=== PATIENT | female | born 1960 | race Hispanic/Latino ===

== ENCOUNTER 2017-10-24 17:26 | Emergency (ER) | payer MEDICARE | END 2017-10-24 17:36 | disposition left against medical advice (07) | LOC: ED 17:26 | DX: R03.0 Elevated blood-pressure reading, without diagnosis of hypertension (principal); Z53.21 Procedure and treatment not carried out due to patient leaving prior to being seen by health care provider ==

== ENCOUNTER 2019-03-12 09:07 | Outpatient (CLI) | payer MEDICARE ==
--- NOTE | 2019-03-12 11:25 | Fluoroscopy Report ---
FLUOROSCOPY BARIUM SWALLOW HISTORY: Dysphagia to solids and liquids COMPARISON: None. FINDINGS: 0.7 minutes of fluoroscopy time was utilized. 33 fluoroscopic images were captured. A moderate size web is identified projecting from the anterior cervical esophagus at the level of C5. This appears to significantly narrow the cervical esophagus in this region. Stenosis is estimated at 75%. The remainder of the esophagus is normal caliber and mucosal pattern. One episode of laryngeal penetration was noted with thin barium. No evidence for aspiration. The patient refused to ingest a barium tablet. 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 This appears to significan tly narrow the esophagus as described. Consider direct visualization. Signer Name: Jonathon Starkey Jr, MD Signed: 03/12/2019 11:20 AM Workstation Name: [id number]
== END 2019-03-12 09:08 | disposition home or self-care (01) ==
LOC: FLUORO 09:07
PROVIDERS: ATTEND Internal Medicine
DX: K22.2 Esophageal obstruction (principal)
CPT/HCPCS: 74220

== ENCOUNTER 2020-07-23 07:27 | Emergency (ER) | payer MEDICARE ==
--- NOTE | 2020-07-23 08:09 | Event Note ---
ED Screening Note ED Screening Note: co dysuria and foul smelling urine PCP could not see her until end of July no fever no cva tenderness vs normal This initial assessment/diagnostic orders/clinical plan/treatment(s) is/are subject to change based on patients health status, clinical progression and re- assessment by fellow clinical providers in the ED. Further treatment and workup at subsequent clinical providers discretion. Patient/guardian urged not to elope from the ED as their condition may be serious if not clinically assessed and managed. Initial orders include: ua
[2020-07-23 08:14] VITALS: BP 143/82
[2020-07-23 09:41] LABS: Bacteria,Urine 4+ /HPF (Negative); Bilirubin,Urine NEG (Negative); Blood,Urine NEG (Negative); Color,Urine Yellow (Yellow); Protein,Urine <15 mg/dL mg/dL (Negative); Urobilinogen,Urine < 2.0 mg/dL (<2.0)
--- NOTE | 2020-07-23 09:45 | Emergency Department Report ---
ED Dysuria HPI - HPI Chief Complaint: Urogenital-Female Stated Complaint: BACK PAIN Time Seen by Provider: 07/23/20 08:09 Duration: 3 Days Location of Discomfort: Suprapubic Severity: Mild Symptoms: Dysuria: Yes, Frequency: Yes, Suprapubic Pain: Yes, Flank Pain: No, Fever: No, Hematuria: No, Abdominal Pain: No, Previous UTI's: Yes Other History: 59 YO WITH DYSURIA FOR 3 DAYS. NO FEVER OR CHILLS. NO BACK PAIN. NO VAG DISCHARGE OR BLEEDING. AMBULATORY NON ILL AND NON TOXIC ON ARRIVAL TO ER. ED Review of Systems ROS: Stated complaint: BACK PAIN Other details as noted in HPI Comment: All other systems reviewed and negative ED Past Medical Hx - Past Medical History Previous Medical History?: Yes Hx Psychiatric Treatment: Yes (bipolar) Additional medical history: Vaginal delivery x 3 - Surgical History Past Surgical History?: Yes Additional Surgical History: colon surgery - Family History Family history: no significant - Social History Smoking Status: Never Smoker Substance Use Type: Prescribed, Tranquilizers - Medications Home Medications: Home Medications Medication Instructions Recorded Confirmed Last Taken Type Amitriptyline 150 mg PO HS 08/17/14 08/17/14 08/16/14 History Atorvastatin Calcium [Lipitor] 20 mg PO QHS 08/17/14 08/17/14 08/16/14 History Ibuprofen [Motrin 800 MG tab] 800 mg PO Q8HR PRN #20 tablet 08/17/14 Unknown Rx [place] Carbonate 300 mg PO DAILY 08/17/14 08/17/14 08/16/14 History Olanzapine [ZyPREXA] 1 tab PO BID 08/17/14 08/17/14 08/16/14 History atenoloL [Tenormin] 25 mg PO DAILY 08/17/14 08/17/14 08/16/14 History cephALEXin [Keflex] 250 mg PO Q6HR #20 capsule 08/17/14 Unknown Rx hydrOXYzine PAMOATE [Vistaril] 50 mg PO TID PRN 08/17/14 08/17/14 08/17/14 History Sulfamethoxazole/Trimethoprim 1 each PO BID #10 tablet 07/23/20 Unknown Rx [Bactrim DS TAB] Dysuria Exam - Exam General: Vital signs noted. No distress. Alert and acting appropriately. Exam: Yes Moist Mucous Membranes, No CVA Tenderness, No Abdominal Tenderness, No Rigidity or Guarding Labs: Lab Results 07/23/20 Range/Units Unknown Urine Color Yellow (Yellow) Urine Turbidity Hazy (Clear) Urine pH 8.0 H (5.0-7.0) Ur Specific [place] 1.004 (1.003-1.030) Urine Protein <15 mg/dl (Negative) mg/dL Urine Glucose (UA) Neg (Negative) mg/dL Urine Ketones Neg (Negative) mg/dL Urine Blood Neg (Negative) Urine Nitrite Pos (Negative) Urine Bilirubin Neg (Negative) Urine Urobilinogen < 2.0 (<2.0) mg/dL Ur Leukocyte Esterase Neg (Negative) Urine WBC (Auto) 5.0 (0.0-6.0) /HPF Urine RBC (Auto) 3.0 (0.0-6.0) /HPF U Epithel Cells (Auto) < 1.0 (0-13.0) /HPF Urine Bacteria (Auto) 4+ (Negative) /HPF ED Course Vital Signs 07/23/20 08:14 Temperature 98.4 F Pulse Rate 78 Respiratory 16 Rate Blood Pressure 143/82 [Right] O2 Sat by Pulse 98 Oximetry ED Medical Decision Making - Medical Decision Making Lab Results 07/23/20 Range/Units Unknown Urine Color Yellow (Yellow) Urine Turbidity Hazy (Clear) Urine pH 8.0 H (5.0-7.0) Ur Specific [place] 1.004 (1.003-1.030) Urine Protein <15 mg/dl (Negative) mg/dL Urine Glucose (UA) Neg (Negative) mg/dL Urine Ketones Neg (Negative) mg/dL Urine Blood Neg (Negative) Urine Nitrite Pos (Negative) Urine Bilirubin Neg (Negative) Urine Urobilinogen < 2.0 (<2.0) mg/dL Ur Leukocyte Esterase Neg (Negative) Urine WBC (Auto) 5.0 (0.0-6.0) /HPF Urine RBC (Auto) 3.0 (0.0-6.0) /HPF U Epithel Cells (Auto) < 1.0 (0-13.0) /HPF Urine Bacteria (Auto) 4+ (Negative) /HPF Vital Signs 07/23/20 08:14 Temperature 98.4 F Pulse Rate 78 Respiratory 16 Rate Blood Pressure 143/82 [Right] O2 Sat by Pulse 98 Oximetry VSS NO FEVER NO CVA TENDERESS ABD EXAM WNL UA NOTED DC HOME WITH BACTRIM. PT HAS APPNT WITH PCP PT VERBALIZES UNDERSTANDING OF DC PLAN OF CARE. - Differential Diagnosis RO UTI/PYLO Critical care attestation.: If time is entered above; I have spent that time in minutes in the direct care of this critically ill patient, excluding procedure time. ED Disposition Clinical Impression: UTI (urinary tract infection) Disposition: DC-01 TO HOME OR SELFCARE Is pt being admited?: No Does the pt Need Aspirin: No Condition: Stable Instructions: Urinary Tract Infection, Adult Additional Instructions: MED ORDERED TODAY FOLLOW UP WITH PCP TO BE SURE YOU ARE RESPONDING TO MEDICATIONS STAY WELL HYDRATED WITH WATER MOTRIN OR TYLENOL FOR PAIN Prescriptions: Sulfamethoxazole/Trimethoprim [Bactrim DS TAB] 1 each PO BID #10 tablet Referrals: TIMMY MARTINEZ MD [Primary Care Provider] - 3-5 Days Time of Disposition: 09:47
== END 2020-07-23 09:45 | disposition home or self-care (01) ==
LOC: ED 07:27
DX: N39.0 Urinary tract infection, site not specified (principal); F31.9 Bipolar disorder, unspecified; Z98.890 Other specified postprocedural states; Z79.899 Other long term (current) drug therapy; Z88.8 Allergy status to other drugs, medicaments and biological substances
CPT/HCPCS: 81001

== ENCOUNTER 2020-08-05 07:38 | Emergency (ER) | payer MEDICARE ==
[2020-08-05 07:58] VITALS: BP 131/69
--- NOTE | 2020-08-05 08:50 | Emergency Department Report ---
ED Female HPI - General Chief complaint: Urogenital-Female Stated complaint: POSSIBLE UTI Time Seen by Provider: 08/05/20 08:04 Source: patient Mode of arrival: Ambulatory Limitations: No Limitations - History of Present Illness Initial comments: 59-year-old female presents to the ER today with mainly with complaints of vaginal odor. Patient states that she has been having vaginal odor followed by over a week. She states that she was also having symptoms of dysuria and urinary frequency. She states she came here in July 23 and was diagnosed with a UTI and prescribed Bactrim for 10 days which she has completed. She states that the symptoms of dysuria and urinary frequency is improving but seems like the vaginal odor is getting worse. She reports that she has been having a white vaginal discharge. She reports mild intermittent lower back and lower abdominal pain. She states that she is still sexually active with the same partner for t he past 8 months and the use protection during sexual intercourse. She is post menopausal . she reports no other symptoms at this time. MD Complaint: vaginal discharge, other (Vaginal odor) -: days(s) (12) - Related Data Home Medications Medication Instructions Recorded Confirmed Last Taken Amitriptyline 150 mg PO HS 08/17/14 08/17/14 08/16/14 Atorvastatin Calcium [Lipitor] 20 mg PO QHS 08/17/14 08/17/14 08/16/14 [place] Carbonate 300 mg PO DAILY 08/17/14 08/17/14 08/16/14 Olanzapine [ZyPREXA] 1 tab PO BID 08/17/14 08/17/14 08/16/14 atenoloL [Tenormin] 25 mg PO DAILY 08/17/14 08/17/14 08/16/14 hydrOXYzine PAMOATE [Vistaril] 50 mg PO TID PRN 08/17/14 08/17/14 08/17/14 Previous Rx's Medication Instructions Recorded Last Taken Type Ibuprofen [Motrin 800 MG tab] 800 mg PO Q8HR PRN #20 tablet 08/17/14 Unknown Rx DOXYCYCLINE Hyclate [Vibramycin 100 mg PO Q12HR #14 capsule 08/05/20 Unknown Rx CAP] metroNIDAZOLE [Flagyl] 500 mg PO Q12HR #14 tab 08/05/20 Unknown Rx Allergies Allergy/AdvReac Type Severity Reaction Status Date / Time Iodinated Contrast Media Allergy Shortness Verified 08/17/14 09:09 [Iodinated Contrast Media - of Breath IV Dye] iodine Allergy Shortness Verified 08/17/14 09:09 of Breath ED Review of Systems ROS: Stated complaint: POSSIBLE UTI Other details as noted in HPI Comment: All other systems reviewed and negative Constitutional: denies: chills, fever Eyes: denies: eye pain, eye discharge, vision change ENT: denies: ear pain, throat pain Respiratory: denies: cough, shortness of breath, SOB with exertion, SOB at rest, wheezing Cardiovascular: denies: chest pain, palpitations Endocrine: no symptoms reported Gastrointestinal: abdominal pain. denies: nausea, vomiting Genitourinary: dysuria, frequency, discharge, other (vaginal odor) Musculoskeletal: back pain. denies: joint swelling, arthralgia, myalgia Skin: denies: rash, lesions, change in color, change in hair/nails, pruritus Neurological: denies: headache, weakness, numbness, paresthesias, confusion, abnormal gait, vertigo Psychiatric: denies: anxiety, depression, auditory hallucinations, visual hallucinations, homicidal thoughts, suicidal thoughts Hematological/Lymphatic: denies: easy bleeding, easy bruising, swollen glands ED Past Medical Hx - Past Medical History Previous Medical History?: Yes Hx Psychiatric Treatment: Yes (bipolar) Additional medical history: Vaginal delivery x 3 - Surgical History Past Surgical History?: Yes Additional Surgical History: colon surgery - Social History Smoking Status: Never Smoker Substance Use Type: Prescribed, Tranquilizers - Medications Home Medications: Home Medications Medication Instructions Recorded Confirmed Last Taken Type Amitriptyline 150 mg PO HS 08/17/14 08/17/14 08/16/14 History Atorvastatin Calcium [Lipitor] 20 mg PO QHS 08/17/14 08/17/14 08/16/14 History Ibuprofen [Motrin 800 MG tab] 800 mg PO Q8HR PRN #20 tablet 08/17/14 Unknown Rx [place] Carbonate 300 mg PO DAILY 08/17/14 08/17/14 08/16/14 History Olanzapine [ZyPREXA] 1 tab PO BID 08/17/14 08/17/14 08/16/14 History atenoloL [Tenormin] 25 mg PO DAILY 08/17/14 08/17/14 08/16/14 History hydrOXYzine PAMOATE [Vistaril] 50 mg PO TID PRN 08/17/14 08/17/14 08/17/14 History DOXYCYCLINE Hyclate [Vibramycin 100 mg PO Q12HR #14 capsule 08/05/20 Unknown Rx CAP] metroNIDAZOLE [Flagyl] 500 mg PO Q12HR #14 tab 08/05/20 Unknown Rx ED Physical Exam - General Limitations: No Limitations General appearance: alert, in no apparent distress - Head Head exam: Present: atraumatic, normocephalic, normal inspection - Eye Eye exam: Present: normal appearance, PERRL, EOMI Pupils: Present: normal accommodation - Respiratory Respiratory exam: Present: normal lung sounds bilaterally. Absent: respiratory distress - Cardiovascular Cardiovascular Exam: Present: regular rate, normal rhythm, normal heart sounds - GI/Abdominal GI/Abdominal exam: Present: soft. Absent: distended, guarding, rebound, rigid - External exam: Present: other ([place] present - Nurse) Speculum exam: Present: normal speculum exam, vaginal discharge (small amt of yellow/white d/c ), other (vaginal atrophy). Absent: erythema, cervical discharge, vaginal bleeding, foreign body, tissue, laceration Bi-manual exam: Present: normal bi-manual exam - Back Exam Back exam: Present: normal inspection, full ROM - Neurological Exam Neurological exam: Present: alert, oriented X3, CN II-XII intact, normal gait - Psychiatric Psychiatric exam: Present: normal affect, normal mood - Skin Skin exam: Present: intact ED Course Vital Signs 08/05/20 07:55 Temperature 98.1 F Pulse Rate 89 Respiratory 18 Rate Blood Pressure 131/69 O2 Sat by Pulse 99 Oximetry ED Medical Decision Making - Medical Decision Making Urinalysis reviewed -UA is concerning for UTI, urine culture pending Wet prep positive for BV but trichomoniasis and yeast negative GC currently pending but patient opted to be treated prophylactically for GC. She was given Rocephin IM here in the ER. He will be started on doxycycline for possible chlamydia and also for the UTI was culture is pending. Patient will be started on Flagyl for BV. Patient currently resting comfortably. She is not in any acute distress. She is not toxic or ill-appearing. Her vital signs are stable. She has no CVA tenderness and she has no abdominal tenderness. Discussed urine and wet prep results with patient. Discussed treatment plan and reasons for antibiotics in detail with patient. She expressed understanding of instructions and agree with plan. Patient stable at time of discharge. Critical care attestation.: If time is entered above; I have spent that time in minutes in the direct care of this critically ill patient, excluding procedure time. ED Disposition Clinical Impression: UTI (urinary tract infection), Bacterial vaginosis, Concern about STD in female without diagnosis Disposition: DC- TO HOME OR SELFCARE Is pt being admited?: No Does the pt Need Aspirin: No Condition: Stable Instructions: Bacterial Vaginosis, [id number], Urinary Tract Infection, Adult, Bacterial Vaginosis (ED) Additional Instructions: Take the doxycycline and flagyl as prescribed. Take both with food and do not drink alcohol while taking these antibiotics. I recommend no sexual intercourse for about 7 days after completion of antibiotics. Your partner will need to be treated as well if your test comes back positive. Drink lots of water. Follow up with PCP. Return to ED if worse. Prescriptions: metroNIDAZOLE [Flagyl] 500 mg PO Q12HR #14 tab DOXYCYCLINE Hyclate [Vibramycin CAP] 100 mg PO Q12HR #14 capsule Referrals: TIMMY MARTINEZ MD [Primary Care Provider] - 3-5 Days Forms: STI Treatment and Prevention Time of Disposition: 09:57
[2020-08-05 09:03] LABS: Bacteria,Urine 4+ /HPF (Negative); Bilirubin,Urine NEG (Negative); Blood,Urine NEG (Negative); Color,Urine Straw (Yellow); Protein,Urine <15 mg/dL mg/dL (Negative); Urobilinogen,Urine < 2.0 mg/dL (<2.0)
[2020-08-05] MEDS ORDERED: LIDOCAINE-MPF (1%) 10 MG/1 ML VIAL 5 ML INFILTRATI ONE (09:19)
== END 2020-08-05 10:14 | disposition home or self-care (01) ==
LOC: ED 07:38
DX: N39.0 Urinary tract infection, site not specified (principal); N76.0 Acute vaginitis; B96.89 Other specified bacterial agents as the cause of diseases classified elsewhere; Z20.2 Contact with and (suspected) exposure to infections with a predominantly sexual mode of transmission; F31.9 Bipolar disorder, unspecified; Z98.890 Other specified postprocedural states; Z79.1 Long term (current) use of non-steroidal anti-inflammatories (NSAID); Z79.899 Other long term (current) drug therapy; Z88.8 Allergy status to other drugs, medicaments and biological substances
CPT/HCPCS: 81001; 87086; 87210; 87591; 96372; 99284; J0696

== ENCOUNTER 2020-08-31 11:23 | Emergency (ER) | payer MEDICARE ==
--- NOTE | 2020-08-31 11:53 | Event Note ---
ED Screening Note Date of service: 08/31/20 Time: 11:52 ED Screening Note: Patient complains of multiple injuries after a trip and fall while jogging today She did hit her head, but denies loss of consciousness, headache, dizziness, or nausea/vomiting Patient is on no blood thinners Multiple injuries and abrasions noted on exam States last tetanus was 1 year ago This initial assessment/diagnostic orders/clinical plan/treatment(s) is/are subject to change based on patients health status, clinical progression and re- assessment by fellow clinical providers in the ED. Further treatment and workup at subsequent clinical providers discretion. Patient/guardian urged not to elope from the ED as their condition may be serious if not clinically assessed and managed. Initial orders include: X-rays
--- NOTE | 2020-08-31 12:54 | XRay Report ---
Left knee 3 views FINDINGS: There is degenerative change most significant in the patellofemoral joint medial joint comp artment. No acute fracture dislocation. No large joint effusion. Right elbow 3 views INDICATION: Pain after fall FINDINGS: There may be a small joint effusion with minimal distention of anterior fat pad. Radial hea d appears intact. No displaced fractures seen. IMPRESSION: Questionable joint effusion on the right. No displaced fractures seen however a follow-up examination in 8-10 days or MRI could be performed if there is continued pain to evaluate for occult injury. Right humerus 2 views INDICATION: Pain FINDINGS: No acute fracture. No periosteal reaction. No soft tissue abnormality. Right shoulder 3 views INDICATION: Pain FINDINGS: No acute fracture the glenohumeral joint. AC joint appears normal. No dislocation. Signer Name: Natan Mendoza MD Signed: 08/31/2020 12:50 PM Workstation Name: [id number]
[2020-08-31] MEDS ORDERED: MORPHINE 4 MG/1 ML INJ IM ONE (13:50)
[2020-08-31] MEDS ORDERED: ONDANSETRON 4 MG ODT TAB PO ONE (13:50)
[2020-08-31] MEDS ORDERED: HYDROGEN PEROXIDE 118 ML SOLUTION TP ONE (15:14)
--- NOTE | 2020-08-31 16:01 | Emergency Department Report ---
ED Fall HPI - General Chief Complaint: Fall Stated Complaint: FELL WHILE WALKING THIS MORNING Time Seen by Provider: 08/31/20 11:50 Source: patient Mode of arrival: Ambulatory - History of Present Illness Initial Comments: Patient is a 59-year-old female who states she was jogging this morning and she tripped over her own feet and fell. Fell mostly on her right side. Complaining of bilateral knee pain and abrasions as well as pain to the right elbow right shoulder and right face. There is no loss of consciousness. She states she is has not had any ataxia syncope nausea vomiting throughout the day. Patient states her pain is 5 out of 10 in severity. - Related Data Home Medications Medication Instructions Recorded Confirmed Last Taken Amitriptyline 150 mg PO HS 08/17/14 08/17/14 08/16/14 Atorvastatin Calcium [Lipitor] 20 mg PO QHS 08/17/14 08/17/14 08/16/14 [place] Carbonate 300 mg PO DAILY 08/17/14 08/17/14 08/16/14 Olanzapine [ZyPREXA] 1 tab PO BID 08/17/14 08/17/14 08/16/14 atenoloL [Tenormin] 25 mg PO DAILY 08/17/14 08/17/14 08/16/14 hydrOXYzine PAMOATE [Vistaril] 50 mg PO TID PRN 08/17/14 08/17/14 08/17/14 Previous Rx's Medication Instructions Recorded Last Taken Type Ibuprofen [Motrin 800 MG tab] 800 mg PO Q8HR PRN #20 tablet 08/17/14 Unknown Rx DOXYCYCLINE Hyclate [Vibramycin 100 mg PO Q12HR #14 capsule 08/05/20 Unknown Rx CAP] metroNIDAZOLE [Flagyl] 500 mg PO Q12HR #14 tab 08/05/20 Unknown Rx Ketorolac [Toradol] 10 mg PO Q6H PRN #12 tablet 08/31/20 Unknown Rx Ondansetron [Zofran Odt] 4 mg PO Q8HR #10 tab.rapdis 08/31/20 Unknown Rx methOCARBAMOL [Robaxin TAB] 500 mg PO Q6H PRN #14 tablet 08/31/20 Unknown Rx Allergies Allergy/AdvReac Type Severity Reaction Status Date / Time Iodinated Contrast Media Allergy Shortness Verified 08/31/20 11:43 [Iodinated Contrast Media - of Breath IV Dye] iodine Allergy Shortness Verified 08/31/20 11:43 of Breath ED Review of Systems ROS: Stated complaint: FELL WHILE WALKING THIS MORNING Other details as noted in HPI Comment: All other systems reviewed and negative ED Past Medical Hx - Past Medical History Hx Hypertension: Yes Hx Psychiatric Treatment: Yes (bipolar) Additional medical history: Vaginal delivery x 3 - Surgical History Additional Surgical History: colon surgery - Social History Smoking Status: Never Smoker Substance Use Type: Prescribed, Tranquilizers - Medications Home Medications: Home Medications Medication Instructions Recorded Confirmed Last Taken Type Amitriptyline 150 mg PO HS 08/17/14 08/17/14 08/16/14 History Atorvastatin Calcium [Lipitor] 20 mg PO QHS 08/17/14 08/17/14 08/16/14 History Ibuprofen [Motrin 800 MG tab] 800 mg PO Q8HR PRN #20 tablet 08/17/14 Unknown Rx [place] Carbonate 300 mg PO DAILY 08/17/14 08/17/14 08/16/14 History Olanzapine [ZyPREXA] 1 tab PO BID 08/17/14 08/17/14 08/16/14 History atenoloL [Tenormin] 25 mg PO DAILY 08/17/14 08/17/14 08/16/14 History hydrOXYzine PAMOATE [Vistaril] 50 mg PO TID PRN 08/17/14 08/17/14 08/17/14 History DOXYCYCLINE Hyclate [Vibramycin 100 mg PO Q12HR #14 capsule 08/05/20 Unknown Rx CAP] metroNIDAZOLE [Flagyl] 500 mg PO Q12HR #14 tab 08/05/20 Unknown Rx Ketorolac [Toradol] 10 mg PO Q6H PRN #12 tablet 08/31/20 Unknown Rx Ondansetron [Zofran Odt] 4 mg PO Q8HR #10 tab.rapdis 08/31/20 Unknown Rx methOCARBAMOL [Robaxin TAB] 500 mg PO Q6H PRN #14 tablet 08/31/20 Unknown Rx ED Physical Exam - General Limitations: No Limitations General appearance: alert, in no apparent distress - Head Head exam: Present: normocephalic. Absent: atraumatic (Abrasions to the right face. Patient does have a almost 2 cm laceration along the right eyebrow laterally. I does not seem to be involved.) - Eye Eye exam: Present: normal appearance - ENT ENT exam: Present: mucous membranes moist - Neck Neck exam: Present: normal inspection - Respiratory Respiratory exam: Present: normal lung sounds bilaterally. Absent: respiratory distress, wheezes, rales, rhonchi - Cardiovascular Cardiovascular Exam: Present: regular rate, normal rhythm. Absent: normal heart sounds, systolic murmur, diastolic murmur, rubs, gallop - GI/Abdominal GI/Abdominal exam: Present: soft, normal bowel sounds. Absent: distended, tenderness, guarding, rebound - Extremities Exam Extremities exam: Present: normal inspection - Back Exam Back exam: Present: normal inspection - Neurological Exam Neurological exam: Present: alert, oriented X3 - Psychiatric Psychiatric exam: Present: normal affect, normal mood - Skin Skin exam: Present: warm, dry, intact, normal color. Absent: rash ED Course Vital Signs 08/31/20 11:49 Temperature 98.7 F Pulse Rate 107 H Respiratory 24 Rate Blood Pressure 130/89 [Right] O2 Sat by Pulse 100 Oximetry - Laceration /Wound Repair Right Face Wound Location: face (right face lateral to the right eyebrow) Wound Length (cm): 2 Wound's Depth, Shape: linear Wound Explored: clean Irrigated w/ Saline (ccs): 50 Betadine Prep?: No Wound Repaired With: Dermabond Progress: tolerated well ED Medical Decision Making - Radiology Data [facility] [address] [place] [address] XRay Report Signed Patient: LAWRENCE CAIN MR#: [id number] : 1960 Acct:[id number] Age/Sex: 59 / F ADM Date: 08/31/20 Loc: ED Attending Dr: Ordering Physician: NICKO HARDIN Date of Service: 08/31/20 Procedure(s): XR shoulder 2+V RT Accession Number(s): [id number] cc: NICKO HARDIN Fluoro Time In Minutes: Left knee 3 views FINDINGS: There is degenerative change most significant in the patellofemoral joint medial joint compartment. No acute fracture dislocation. No large joint effusion. Right elbow 3 views INDICATION: Pain after fall FINDINGS: There may be a small joint effusion with minimal distention of anterior fat pad. Radial head appears intact. No displaced fractures seen. IMPRESSION: Questionable joint effusion on the right. No displaced fractures seen however a follow-up examination in 8-10 days or MRI could be performed if there is continued pain to evaluate for occult injury. Right humerus 2 views INDICATION: Pain FINDINGS: No acute fracture. No periosteal reaction. No soft tissue abnormality. Right shoulder 3 views INDICATION: Pain FINDINGS: No acute fracture the glenohumeral joint. AC joint appears normal. No dislocation. Signer Name: Natan Mendoza MD Signed: 08/31/2020 12:50 PM Workstation Name: [id number] - Medical Decision Making Patient is a 59-year-old female suffered a fall this morning. No acute fractures are seen. She has full range of motion all of her extremities although she is quite bruised and has multiple abrasions. The small laceration on her forehead was closed with Dermabond. Patient will be discharged home with medication for symptomatic relief and she can follow-up with orthopedics as needed Critical care attestation.: If time is entered above; I have spent that time in minutes in the direct care of this critically ill patient, excluding procedure time. ED Disposition Clinical Impression: Closed head injury, Facial laceration, Abrasion, multiple sites, Multiple contusions Disposition: -01 TO HOME OR SELFCARE Is pt being admited?: No Does the pt Need Aspirin: No Condition: Stable Instructions: Wound Care, Adult, Sutures, [place], or Adhesive Wound Closure, Laceration Care, Adult, Musculoskeletal Pain Referrals: ROXANA SANCHEZ MD [Staff Physician] - as needed Time of Disposition: 16:07
[2020-08-31 16:22] VITALS: BP 139/83
== END 2020-08-31 16:40 | disposition home or self-care (01) ==
LOC: ED 11:23
DX: S01.81XA Laceration without foreign body of other part of head, initial encounter (principal); S09.90XA Unspecified injury of head, initial encounter; T07.XXXA Unspecified multiple injuries, initial encounter; F31.9 Bipolar disorder, unspecified; I10 Essential (primary) hypertension; Z91.041 Radiographic dye allergy status; Z79.899 Other long term (current) drug therapy; Z98.890 Other specified postprocedural states; W18.30XA Fall on same level, unspecified, initial encounter; Y93.89 Activity, other specified; Y92.89 Other specified places as the place of occurrence of the external cause; Y99.8 Other external cause status
CPT/HCPCS: 12011; 73030; 73060; 73080; 73562; 96372; 99283; J2270; Q0162

== ENCOUNTER 2020-11-30 12:46 | Emergency (ER) | payer MEDICARE ==
[2020-11-30 13:02] VITALS: BP 106/75
--- NOTE | 2020-11-30 13:19 | Emergency Department Report ---
ED General Adult HPI - General Chief complaint: Medical Clearance Stated complaint: medical clearance PUI?: No Time Seen by Provider: 11/30/20 12:59 Source: patient, family, RN notes reviewed Mode of arrival: Ambulatory Limitations: No Limitations, Physical Limitation - History of Present Illness Initial comments: The patient was evaluated in the emergency department for symptoms described in the history of present illness. He/she was evaluated in the context of the global COVID-19 pandemic, which necessitated consideration that the patient might be at risk for infection with the virus that causes COVID-19. Institutional protocols and algorithms that pertain to the evaluation of patients at risk for COVID-19 are in a state of rapid change based on information released by regulatory bodies including the CDC and federal and state organizations. These policies and algorithms were followed during the patient's care in the emergency department. Please note that these policies, procedures and recommendations changed on a rapid basis. The patient is a 60-year-old female. She has a past medical history of bipolar disorder, high cholesterol and hypertension. Her psychiatrist is Dr. Ndiaye. Her current medications include the following: Zyprexa, 25 mg, nightly, lithium, 300 mg, every morning, nightly, Vistaril 50 mg, twice daily, as needed anxiety, amitriptyline 50 mg, 2 tablets by night nightly, atenolol, 25 mg, and Lipitor, 20 mg. She is brought to the hospital with her niece, Ms. Sara Young; [phone]. The patient and her niece are requesting medical clearance to go to [facility] for psychiatric evaluation. The patient complains of hallucinations. The patient is not homicidal or allyssa cidal. She has not tried to overdose on anything. Her niece is at the bedside and corroborates this. Her niece states that she feels safe at home with the patient. The patient presented to [facility], and was instructed to return to the emergency room, for medical clearance. On review systems, the patient denies headache, neck pain, chest pain, abdominal pain, shortness of breath, intentional overdose, homicidality and suicidality. She has chronic urinary discomfort, secondary to decades of "interstitial cystitis." The patient also describes decreased auditory acuity, and ringing sound in her left ear. The patient cleans with a Q-tip. The patient denies headache. -: Gradual Severity scale (0 -10): 5 Consistency: intermittent Improves with: none Worsens with: none Associated Symptoms: denies other symptoms, other (As per history of present illness) - Related Data Home Medications Medication Instructions Recorded Confirmed Last Taken Amitriptyline 150 mg PO HS 08/17/14 08/17/14 08/16/14 Atorvastatin Calcium [Lipitor] 20 mg PO QHS 08/17/14 08/17/14 08/16/14 [place] Carbonate 300 mg PO DAILY 08/17/14 08/17/14 08/16/14 atenoloL [Tenormin] 25 mg PO DAILY 08/17/14 08/17/14 08/16/14 hydrOXYzine PAMOATE [Vistaril] 50 mg PO TID PRN 08/17/14 08/17/14 08/17/14 Previous Rx's Medication Instructions Recorded Last Taken Type Ondansetron [Zofran Odt] 4 mg PO Q8HR #10 tab.rapdis 08/31/20 Unknown Rx Nitrofurantoin [place]inn/M-Cryst 100 mg PO Q12HR #14 capsule 11/30/20 Unknown Rx [Macrobid CAP] Allergies Allergy/AdvReac Type Severity Reaction Status Date / Time Iodinated Contrast Media Allergy Shortness Verified 08/31/20 11:43 [Iodinated Contrast Media - of Breath IV Dye] iodine Allergy Shortness Verified 08/31/20 11:43 of Breath ED Review of Systems ROS: Stated complaint: PYSH EVAL Other details as noted in HPI Constitutional: denies: fever, malaise Eyes: denies: eye discharge, vision change ENT: hearing loss (Left-sided tinnitus). denies: dental pain Respiratory: denies: cough Cardiovascular: denies: chest pain Genitourinary: dysuria (Chronic) Neurological: denies: weakness Psychiatric: auditory hallucinations. denies: homicidal thoughts, suicidal thoughts ED Past Medical Hx - Past Medical History Previous Medical History?: Yes Hx Hypertension: Yes Hx Psychiatric Treatment: Yes (bipolar) Additional medical history: Vaginal delivery x 3, Interstitual cystitis - Surgical History Past Surgical History?: Yes Additional Surgical History: colon surgery - Social History Smoking Status: Never Smoker Substance Use Type: Prescribed, Tranquilizers - Medications Home Medications: Home Medications Medication Instructions Recorded Confirmed Last Taken Type Amitriptyline 150 mg PO HS 08/17/14 08/17/14 08/16/14 History Atorvastatin Calcium [Lipitor] 20 mg PO QHS 08/17/14 08/17/14 08/16/14 History [place] Carbonate 300 mg PO DAILY 08/17/14 08/17/14 08/16/14 History atenoloL [Tenormin] 25 mg PO DAILY 08/17/14 08/17/14 08/16/14 History hydrOXYzine PAMOATE [Vistaril] 50 mg PO TID PRN 08/17/14 08/17/14 08/17/14 History Ondansetron [Zofran Odt] 4 mg PO Q8HR #10 tab.rapdis 08/31/20 Unknown Rx Nitrofurantoin [place]inn/M-Cryst 100 mg PO Q12HR #14 capsule 11/30/20 Unknown Rx [Macrobid CAP] ED Physical Exam - General Limitations: No Limitations General appearance: alert, in no apparent distress, anxious - Head Head exam: Present: atraumatic, normocephalic - Eye Eye exam: Present: normal appearance, PERRL, EOMI, other (Visual acuity intact to finger counting, color perception, reading at a close distance). Absent: nystagmus - ENT ENT exam: Present: normal exam, normal orophraynx, mucous membranes moist, normal external ear exam, other (Right tympanic membrane within normal limits. Left tympanic membrane partially perforated. No redness, pus or streaking. No mastoid tenderness.) - Neck Neck exam: Present: normal inspection, full ROM. Absent: tenderness, meningismus - Respiratory Respiratory exam: Present: normal lung sounds bilaterally. Absent: respiratory distress, wheezes, rales, rhonchi, stridor, chest wall tenderness - Cardiovascular Cardiovascular Exam: Present: regular rate, normal rhythm, normal heart sounds. Absent: bradycardia, tachycardia, irregular rhythm, systolic murmur, diastolic murmur, rubs, gallop - GI/Abdominal GI/Abdominal exam: Present: soft. Absent: distended, tenderness, guarding, rebound, rigid, pulsatile mass - Extremities Exam Extremities exam: Present: normal inspection, full ROM, other (2+ pulses noted in the bilateral upper and lower extremities. There is no palpable cord. negative Homans sign. Muscular compartments are soft. The pelvis is stable.). Absent: tenderness, calf tenderness - Back Exam Back exam: Present: normal inspection, full ROM, other. Absent: CVA tenderness (R), CVA tenderness (L), paraspinal tenderness, vertebral tenderness - Neurological Exam Neurological exam: Present: alert, oriented X3, normal gait, other (No facial droop. Tongue midline. Extraocular movements intact bilaterally. Facial sensation intact to light touch in V1, V2, V3 distribution bilaterally. 5 and a 5 strength in 4 extremities. Sensation intact to light touch in 4 extremities.). Absent: motor sensory deficit - Psychiatric Psychiatric exam: Absent: homicidal ideation, suicidal ideation - Skin Skin exam: Present: warm, dry, intact, normal color. Absent: rash ED Course Vital Signs 11/30/20 13:01 Temperature 98.8 F Pulse Rate 96 H Respiratory 18 Rate Blood Pressure 106/75 [Right] O2 Sat by Pulse 99 Oximetry - Reevaluation(s) Reevaluation #1: 11/30/20 13:37 Differential diagnosis, including but not limited to: Tympanic membrane perforation, encounter for behavioral health screening examination, encounter for medical screening examination Assessment and plan: 60-year-old female, who was afebrile, with reassuring vital signs, clinically sober, with a GCS of 15, who is alert and oriented to name, place, location and month, knows her primary care doctor, knows her medications, knows her psychiatrist, who is not homicidal suicidal, and who does not de monstrate evidence of acute psychosis to the point of decompensation requiring 1013 or involuntary hold, or involuntary confinement. The patient's niece is at the bedside, and also corroborates that she feels safe to have the patient go home for follow-up as an outpatient. There is no specific concern for self-harm, homicidality or suicidality. They are seeking ER evaluation for clearance for psychiatric evaluation at [facility]. We will obtain appropriate laboratory studies and urinalysis. Contacted our psychiatric technical fellow, Ms Daria Sanchez. I discussed the patient's history, physical, and my clinical impression. As this patient does not meet criteria for 1013 hold or involuntary hold, she does not require a formal mental health evaluation. Ms. Sanchez advises that once the patient has been medically cleared by myself, which I anticipate being able to do fairly quickly, the patient and her niece may drive themselves or walk themselves over to [facility]. Incidentally, patient noted to be cleaning her ears with Q-tips at home sporadically, and has left-sided ear discomfort, with evidence of partial tympanic membrane perforation, without evidence of superinfection. Avoid aquatic submersion, avoid Q-tips, as needed Tylenol and Motrin, outpatient primary care and/or ENT follow-up. Discussed this with the patient and her niece. They have articulated understanding. 11/30/20 15:37 Laboratory studies reviewed and appreciated. They are unremarkable, lithium level of 1.4 reviewed and appreciated. Patient states she took her lithium at around 1030/11:00 AM today. Have recommended the patient hold lithium level tonight and tomorrow morning, and have a recheck with primary care, urgent care, at her outpatient psychiatry office, or she may return to the emergency room for lithium level rechecked. Urinalysis reviewed and appreciated. The patient subjectively feels like her "interstitial cystitis is acting up." She reports that she is able to take Kapseal medications. We will discharge with Macrobid. Patient drinking soda at this time. She is not in any acute distress. Extensive discussion had with patient and her niece. All questions answered. Return precautions are reviewed. ED Medical Decision Making - Lab Data Result diagrams: 11/30/20 13:24 11/30/20 13:24 Vital Signs 11/30/20 13:01 Temperature 98.8 F Pulse Rate 96 H Respiratory 18 Rate Blood Pressure 106/75 [Right] O2 Sat by Pulse 99 Oximetry Lab Results 11/30/20 11/30/20 11/30/20 Range/Units 13:24 13:24 13:24 WBC 11.6 H (4.5-11.0) K/mm3 RBC 4.56 (3.65-5.03) M/mm3 Hgb 12.0 (10.1-14.3) gm/dl Hct 37.3 (30.3-42.9) % MCV 82 (79-97) fl MCH 26 L (28-32) pg MCHC 32 (30-34) % RDW 15.2 (13.2-15.2) % Plt Count 212 (140-440) K/mm3 Sodium 140 (137-145) mmol/L Potassium 4.0 (3.6-5.0) mmol/L Chloride 106.1 (98-107) mmol/L Carbon Dioxide 24 (22-30) mmol/L Anion Gap 14 mmol/L BUN 13 (7-17) mg/dL Creatinine 1.0 (0.6-1.2) mg/dL Estimated GFR 56 ml/min BUN/Creatinine Ratio 13 % Glucose 111 H (65-100) mg/dL Calcium 9.7 (8.4-10.2) mg/dL Total Bilirubin 0.50 (0.1-1.2) mg/dL AST 16 (5-40) units/L ALT 9 (7-56) units/L Alkaline Phosphatase 120 (35-129) units/L Total Protein 6.6 (6.3-8.2) g/dL Albumin 3.9 (3.9-5) g/dL Albumin/Globulin Ratio 1.4 % TSH 1.840 (0.270-4.200) mlU/mL Urine Color (Yellow) Urine Turbidity (Clear) Urine pH (5.0-7.0) Ur Specific [place] (1.003-1.030) Urine Protein (Negative) mg/dL Urine Glucose (UA) (Negative) mg/dL Urine Ketones (Negative) mg/dL Urine Blood (Negative) Urine Nitrite (Negative) Urine Bilirubin (Negative) Urine Urobilinogen (<2.0) mg/dL Ur Leukocyte Esterase (Negative) Urine WBC (Auto) (0.0-6.0) /HPF Urine RBC (Auto) (0.0-6.0) /HPF U Epithel Cells (Auto) (0-13.0) /HPF Urine Bacteria (Auto) (Negative) /HPF Urine Mucus /HPF Salicylates (2.8-20.0) mg/dL Urine Opiates Screen Urine Methadone Screen Acetaminophen (10.0-30.0) ug/mL Ur Barbiturates Screen Ur Phencyclidine Scrn Ur Amphetamines Screen U Benzodiazepines Scrn Caribou (0.0-1.2) mmol/L Urine Cocaine Screen U Marijuana (THC) Screen Drugs of Abuse Note Plasma/Serum Alcohol (0-0.07) % 11/30/20 11/30/20 11/30/20 Range/Units 13:24 13:24 13:24 WBC (4.5-11.0) K/mm3 RBC (3.65-5.03) M/mm3 Hgb (10.1-14.3) gm/dl Hct (30.3-42.9) % MCV (79-97) fl MCH (28-32) pg MCHC (30-34) % RDW (13.2-15.2) % Plt Count (140-440) K/mm3 Sodium (137-145) mmol/L Potassium (3.6-5.0) mmol/L Chloride (98-107) mmol/L Carbon Dioxide (22-30) mmol/L Anion Gap mmol/L BUN (7-17) mg/dL Creatinine (0.6-1.2) mg/dL Estimated GFR ml/min BUN/Creatinine Ratio % Glucose (65-100) mg/dL Calcium (8.4-10.2) mg/dL Total Bilirubin (0.1-1.2) mg/dL AST (5-40) units/L ALT (7-56) units/L Alkaline Phosphatase (35-129) units/L Total Protein (6.3-8.2) g/dL Albumin (3.9-5) g/dL Albumin/Globulin Ratio % TSH (0.270-4.200) mlU/mL Urine Color (Yellow) Urine Turbidity (Clear) Urine pH (5.0-7.0) Ur Specific [place] (1.003-1.030) Urine Protein (Negative) mg/dL Urine Glucose (UA) (Negative) mg/dL Urine Ketones (Negative) mg/dL Urine Blood (Negative) Urine Nitrite (Negative) Urine Bilirubin (Negative) Urine Urobilinogen (<2.0) mg/dL Ur Leukocyte Esterase (Negative) Urine WBC (Auto) (0.0-6.0) /HPF Urine RBC (Auto) (0.0-6.0) /HPF U Epithel Cells (Auto) (0-13.0) /HPF Urine Bacteria (Auto) (Negative) /HPF Urine Mucus /HPF Salicylates < 0.3 L (2.8-20.0) mg/dL Urine Opiates Screen Urine Methadone Screen Acetaminophen 5.0 L (10.0-30.0) ug/mL Ur Barbiturates Screen Ur Phencyclidine Scrn Ur Amphetamines Screen U Benzodiazepines Scrn Caribou 1.4 H (0.0-1.2) mmol/L Urine Cocaine Screen U Marijuana (THC) Screen Drugs of Abuse Note Plasma/Serum Alcohol < 0.01 (0-0.07) % 11/30/20 11/30/20 Range/Units 14:54 14:54 WBC (4.5-11.0) K/mm3 RBC (3.65-5.03) M/mm3 Hgb (10.1-14.3) gm/dl Hct (30.3-42.9) % MCV (79-97) fl MCH (28-32) pg MCHC (30-34) % RDW (13.2-15.2) % Plt Count (140-440) K/mm3 Sodium (137-145) mmol/L Potassium (3.6-5.0) mmol/L Chloride (98-107) mmol/L Carbon Dioxide (22-30) mmol/L Anion Gap mmol/L BUN (7-17) mg/dL Creatinine (0.6-1.2) mg/dL Estimated GFR ml/min BUN/Creatinine Ratio % Glucose (65-100) mg/dL Calcium (8.4-10.2) mg/dL Total Bilirubin (0.1-1.2) mg/dL AST (5-40) units/L ALT (7-56) units/L Alkaline Phosphatase (35-129) units/L Total Protein (6.3-8.2) g/dL Albumin (3.9-5) g/dL Albumin/Globulin Ratio % TSH (0.270-4.200) mlU/mL Urine Color Yellow (Yellow) Urine Turbidity Cloudy (Clear) Urine pH 7.0 (5.0-7.0) Ur Specific [place] 1.005 (1.003-1.030) Urine Protein <15 mg/dl (Negative) mg/dL Urine Glucose (UA) Neg (Negative) mg/dL Urine Ketones Neg (Negative) mg/dL Urine Blood Sm (Negative) Urine Nitrite Pos (Negative) Urine Bilirubin Neg (Negative) Urine Urobilinogen < 2.0 (<2.0) mg/dL Ur Leukocyte Esterase Lg (Negative) Urine WBC (Auto) 40.0 H (0.0-6.0) /HPF Urine RBC (Auto) 1.0 (0.0-6.0) /HPF U Epithel Cells (Auto) < 1.0 (0-13.0) /HPF Urine Bacteria (Auto) 1+ (Negative) /HPF Urine Mucus Few /HPF Salicylates (2.8-20.0) mg/dL Urine Opiates Screen Negative Urine Methadone Screen Negative Acetaminophen (10.0-30.0) ug/mL Ur Barbiturates Screen Negative Ur Phencyclidine Scrn Negative Ur Amphetamines Screen Negative U Benzodiazepines Scrn Negative Caribou (0.0-1.2) mmol/L Urine Cocaine Screen Negative U Marijuana (THC) Screen Negative Drugs of Abuse Note Disclamer Plasma/Serum Alcohol (0-0.07) % Critical care attestation.: If time is entered above; I have spent that time in minutes in the direct care of this critically ill patient, excluding procedure time. ED Disposition Clinical Impression: Encounter for behavioral health screening, Encounter for medical screening examination, Perforation of left tympanic membrane, Caribou use, Pyuria Disposition: 01 HOME / SELF CARE / HOMELESS Is pt being admited?: No Does the pt Need Aspirin: No Condition: Stable Instructions: Medical Screening Exam, Eardrum Rupture, [id number] Additional Instructions: Patient may take [id number] Tylenol, alternate with [id number] ibuprofen as needed for physical pain. Do not insert Q-tips or foreign objects into the patient's ears. Avoid aquatic submersion, and prolonged exposure to water for the head, and left side of the ear. Patient was found to have evidence of partial left-sided eardrum rupture/tympanic membrane perforation. Dr Keagan Carlson is a local ENT physician Dr Eber Daniels is a local primary care doctor This should heal on its own. We do recommend follow-up with a primary care doctor or reception clerk within the next month for left-sided eardrum rupture recheck. The patient was seen and evaluated in the emergency room today, and she was not found to have an immediate medical contraindication to psychiatric evaluation, and consultation. The patient was found to have a slightly elevated lithium level at 1.4. This is likely secondary to taking lithium this morning. Recommend that patient hold lithium tonight, and have a repeat lithium level acquired in 24 hours. Patient is not recommended to resume lithium therapy until cleared to do so by her primary care doctor or psychiatrist. The patient may follow-up with her primary care doctor, psychiatrist, urgent care center, or return to this emergency room in 24 hours for repeat lithium level. Urinalysis was suggestive of urinary tract infection/possible interstitial cystitis. Patient is being discharged with Macrobid capsule prescription, we do recommend follow-up with primary care doctor within the next 10 days for repeat checkup and evaluation to assess for treatment of history of interstitial cystitis, possible superimposed urinary tract infection Please follow-up with your outpatient primary care doctor within the next 7 to 10 days. Please return to the emergency room right away with new pain, worsened pain, migration of pain, homicidality, suicidality, change in mental status, confusion, or any new, worsened or different symptoms not present on the initial emergency room evaluation. Referrals: NEGRITO DELONG MD [Referring] - 3-5 Days RANDA DANIELS MD [Staff Physician] - 7-10 days
[2020-11-30 13:41] LABS: Hematocrit 37.3 % (30.3-42.9); Mean Corpuscular HGB Conc 32 % (30-34); Mean Corpuscular Volume 82 fl (79-97); Platelet Count 212 K/mm3 (140-440); Red Blood Count 4.56 M/mm3 (3.65-5.03); Red Cell Distribution Width 15.2 % (13.2-15.2)
[2020-11-30 14:05] LABS: Albumin 3.9 g/dL (3.9-5); Calcium 9.7 mg/dL (8.4-10.2)
[2020-11-30 15:22] LABS: Amphetamine Screen,Urine Negative; Benzodiazepines Screen,Urine Negative; Cannabinoid Screen,Urine Negative; Cocaine Screen,Urine Negative; Methadone Screen,Urine Negative; Opiate Screen,Urine Negative
[2020-11-30 15:27] LABS: Bacteria,Urine 1+ /HPF (Negative); Bilirubin,Urine NEG (Negative); Blood,Urine SM (Negative); Color,Urine Yellow (Yellow); Mucus,Urine FEW /HPF; Protein,Urine <15 mg/dL mg/dL (Negative); Urobilinogen,Urine < 2.0 mg/dL (<2.0)
== END 2020-11-30 15:53 | disposition home or self-care (01) ==
LOC: ED 12:46
DX: Z13.30 Encounter for screening examination for mental health and behavioral disorders, unspecified (principal); H72.92 Unspecified perforation of tympanic membrane, left ear; R35.89 Other polyuria; Z79.899 Other long term (current) drug therapy; I10 Essential (primary) hypertension; F31.9 Bipolar disorder, unspecified; Z91.041 Radiographic dye allergy status; Z88.6 Allergy status to analgesic agent
CPT/HCPCS: 36415; 80053; 80178; 80307; 80320; 81001; 84443; 85027; 87076; 87086; 87186; 99283; G0480

== ENCOUNTER 2021-09-02 10:54 | Emergency (ER) | payer MEDICARE ==
[2021-09-02] MEDS ORDERED: SODIUM CHLORIDE 0.9% 1000 ML 1,000 ML IV ONE (12:13)
[2021-09-02] MEDS ORDERED: cefTRIAXone/NS 1 GM/50 ML 1 GM/50 ML BAG IV ONE (12:13)
--- NOTE | 2021-09-02 12:14 | Emergency Department Report ---
ED Dysuria HPI - HPI Chief Complaint: Urogenital-Female Stated Complaint: UTI/KIDNEY INFECTION Time Seen by Provider: 09/02/21 11:47 Location of Discomfort: Suprapubic Severity: Mild Symptoms: Dysuria: Yes, Frequency: No, Suprapubic Pain: No, Flank Pain: No, Fever: No, Hematuria: No, Abdominal Pain: No, Previous UTI's: Yes Other History: 60 yo comes to ER with dysuria. Has been dx with UTI started on augmentum but is not getting better. Also self medicating with levaquin. no fever or chills. no n/v/d. no fever or chills. ED Review of Systems ROS: Stated complaint: UTI/KIDNEY INFECTION Other details as noted in HPI Comment: All other systems reviewed and negative ED Past Medical Hx - Past Medical History Previous Medical History?: Yes Hx Hypertension: Yes Hx Psychiatric Treatment: Yes (bipolar) Additional medical history: Vaginal delivery x 3, Interstitual cystitis - Surgical History Past Surgical History?: Yes Additional Surgical History: colon surgery - Family History Family history: no significant - Social History Smoking Status: Never Smoker Substance Use Type: Prescribed, Tranquilizers - Medications Home Medications: Home Medications Medication Instructions Recorded Confirmed Last Taken Type Amitriptyline 150 mg PO HS 08/17/14 08/17/14 08/16/14 History Atorvastatin Calcium [Lipitor] 20 mg PO QHS 08/17/14 08/17/14 08/16/14 History [place] Carbonate 300 mg PO DAILY 08/17/14 08/17/14 08/16/14 History atenoloL [Tenormin] 25 mg PO DAILY 08/17/14 08/17/14 08/16/14 History hydrOXYzine PAMOATE [Vistaril] 50 mg PO TID PRN 08/17/14 08/17/14 08/17/14 History Ondansetron [Zofran Odt] 4 mg PO Q8HR #10 tab.rapdis 08/31/20 Unknown Rx Nitrofurantoin [place]/M-Cryst 100 mg PO Q12HR #14 capsule 11/30/20 Unknown Rx [Macrobid CAP] Sulfamethoxazole/Trimethoprim 1 each PO BID #10 tablet 09/02/21 Unknown Rx [Bactrim DS TAB] Dysuria Exam - Exam General: Vital signs noted. No distress. Alert and acting appropriately. Exam: Yes Moist Mucous Membranes, No CVA Tenderness, No Abdominal Tenderness, No Rigidity or Guarding ED Course Vital Signs 09/02/21 11:26 Temperature 98.2 F Pulse Rate 77 Respiratory 18 Rate Blood Pressure 113/54 [Left] O2 Sat by Pulse 97 Oximetry ED Medical Decision Making - Lab Data Result diagrams: 09/02/21 12:46 09/02/21 12:46 - Medical Decision Making Lab Results 09/02/21 09/02/21 09/02/21 Range/Units 12:46 12:46 Unknown WBC 5.3 (4.5-11.0) K/mm3 RBC 4.42 (3.65-5.03) M/mm3 Hgb 12.3 (10.1-14.3) gm/dl Hct 37.5 (30.3-42.9) % MCV 85 (79-97) fl MCH 28 (28-32) pg MCHC 33 (30-34) % RDW 14.3 (13.2-15.2) % Plt Count 194 (140-440) K/mm3 Sodium 138 (137-145) mmol/L Potassium 4.7 (3.6-5.0) mmol/L Chloride 111.7 H (98-107) mmol/L Carbon Dioxide 21 L (22-30) mmol/L Anion Gap 10 mmol/L BUN 12 (7-17) mg/dL Creatinine 0.7 (0.6-1.2) mg/dL Estimated GFR > 60 ml/min BUN/Creatinine Ratio 17 % Glucose 85 (65-100) mg/dL Calcium 8.7 (8.4-10.2) mg/dL Urine Color Yellow (Yellow) Urine Turbidity Clear (Clear) Urine pH 7.0 (5.0-7.0) Ur Specific [place] 1.020 (1.003-1.030) Urine Protein 30 mg/dl (Negative) mg/dL Urine Glucose (UA) Negative (Negative) mg/dL Urine Ketones Negative (Negative) mg/dL Urine Blood Negative (Negative) Urine Nitrite Negative (Negative) Ur Reducing Substances Not Reportable Urine Bilirubin Negative (Negative) Urine Ictotest Not Reportable Urine Urobilinogen < 2.0 (<2.0) mg/dL Ur Leukocyte Esterase Small (Negative) Urine WBC (Auto) 50.0 H (0.0-6.0) /HPF Urine RBC (Auto) 22.0 (0.0-6.0) /HPF U Epithel Cells (Auto) 44.0 H (0-13.0) /HPF Hyaline Casts 1 /LPF Urine Mucus Few /HPF Vital Signs 09/02/21 11:26 Temperature 98.2 F Pulse Rate 77 Respiratory 18 Rate Blood Pressure 113/54 [Left] O2 Sat by Pulse 97 Oximetry vs normal afebrile no cva tenderness abd snt taking po labs noted WBC normal ua noted medicated in ER with NS and rocephin IV dc home with dc plan of care including diet, activity, meds and follow up. Pt verbalizes the understanding of importance of taking meds as given and to follow up when completed to be sure this has gone away. Pt sent home on bactrum - if she needs a change in regimen based on culture- we need to call her advised to stop augment. and levaquin pt states macrobid dont for her - Differential Diagnosis ro uti/pylo Critical care attestation.: If time is entered above; I have spent that time in minutes in the direct care of this critically ill patient, excluding procedure time. ED Disposition Clinical Impression: UTI (urinary tract infection) Qualifiers: Urinary tract infection type: site unspecified Hematuria presence: without hematuria Qualified Code(s): N39.0 - Urinary tract infection, site not specified Disposition: 01 HOME / SELF CARE / HOMELESS Is pt being admited?: No Does the pt Need Aspirin: No Condition: Stable Instructions: Urinary Tract Infection, Adult, [id number] Additional Instructions: stay well hydrated with water med as ordered today NO more of the other 2 meds you showed me- augmen/levaquin motrin or tylenol for pain diet and activity as tolerated follow up with pcp after you complete med to be sure this has gone away referral below Prescriptions: Sulfamethoxazole/Trimethoprim [Bactrim DS TAB] 1 each PO BID #10 tablet Referrals: RANDA DAILY MD [Primary Care Provider] - 3-5 Days Time of Disposition: 14:38
[2021-09-02 12:54] LABS: Hyaline Casts,Urine 1 /LPF; Mucus,Urine FEW /HPF
[2021-09-02 13:12] LABS: Color,Urine Yellow (Yellow)
[2021-09-02 13:13] LABS: Bilirubin,Urine Negative (Negative); Blood,Urine Negative (Negative); Urobilinogen,Urine < 2.0 mg/dL (<2.0)
[2021-09-02 13:54] LABS: Hematocrit 37.5 % (30.3-42.9); Hemoglobin 12.3 gm/dl (10.1-14.3); Mean Corpuscular HGB Conc 33 % (30-34); Mean Corpuscular Volume 85 fl (79-97); Platelet Count 194 K/mm3 (140-440); Red Blood Count 4.42 M/mm3 (3.65-5.03); Red Cell Distribution Width 14.3 % (13.2-15.2)
[2021-09-02 14:08] LABS: Blood Urea Nitrogen 12 mg/dL (7-17); Calcium 8.7 mg/dL (8.4-10.2); Hemolysis Index 7
[2021-09-02 14:37] LABS: BUN/Creatinine Ratio 17
[2021-09-02] MEDS ORDERED: IBUPROFEN 800 MG TAB PO ONE (15:06)
[2021-09-02 15:16] VITALS: BP 120/77
== END 2021-09-02 15:00 | disposition home or self-care (01) ==
LOC: ED 10:54
DX: N39.0 Urinary tract infection, site not specified (principal); I10 Essential (primary) hypertension; F31.9 Bipolar disorder, unspecified
CPT/HCPCS: 36415; 80048; 81001; 85027; 87086; 96365; 99283; J0696; J7030

== ENCOUNTER 2021-09-30 09:47 | Emergency (ER) | payer MEDICARE ==
[2021-09-30] MEDS ORDERED: ASPIRIN 325 MG TAB PO ONE (09:53)
--- NOTE | 2021-09-30 10:30 | XRay Report ---
CHEST 2 VIEWS INDICATION / CLINICAL INFORMATION: CHEST PAIN. COMPARISON: Acute abdominal series from 11/02/2010. FINDINGS: SUPPORT DEVICES: None. HEART / MEDIASTINUM: No significant abnormality. LUNGS / PLEURA: No significant pulmonary abnormality. No significant pleural effusion. No pneumothora x. ADDITIONAL FINDINGS: No significant additional findings. IMPRESSION: 1. No acute abnormality of the chest. Signer Name: Stanislav Pelletier MD Signed: 09/30/2021 10:25 AM Workstation Name: [id number]
[2021-09-30 11:44] LABS: Alanine Aminotransferase 12 units/L (7-56); Albumin 4.6 g/dL (3.9-5); BUN/Creatinine Ratio 14; Blood Urea Nitrogen 11 mg/dL (7-17); Calcium 9.9 mg/dL (8.4-10.2); Hemolysis Index 5
[2021-09-30 22:42] VITALS: BP 121/50
--- NOTE | 2021-10-01 01:53 | Emergency Department Report ---
ED Chest Pain HPI - General Chief Complaint: Chest Pain Stated Complaint: CHEST PAIN Time Seen by Provider: 10/01/21 01:42 Source: patient, EMS Mode of arrival: Stretcher Limitations: No Limitations - History of Present Illness Initial Comments: 63-year-old female who presents with left chest pain that started yesterday morning progressively getting worse. Patient was brought in by EMS and had aspirin 4 baby aspirin with improvement in chest pain. Patient rated the pain as 5/10 in severity and describes it as pressure in the left side of the chest. No radiation reported. No fever or chills reported. No other modifying or associated factors noted. - Related Data Home Medications Medication Instructions Recorded Confirmed Last Taken Atorvastatin Calcium [Lipitor] 20 mg PO QHS 08/17/14 09/30/21 08/16/14 Forney Carbonate 300 mg PO DAILY 08/17/14 09/30/21 08/16/14 atenoloL [Tenormin] 25 mg PO DAILY 08/17/14 09/30/21 08/16/14 hydrOXYzine PAMOATE [Vistaril] 50 mg PO TID PRN 08/17/14 09/30/21 08/17/14 Lurasidone HCl [Latuda] 60 mg PO QDAY 09/30/21 09/30/21 Unknown Mirtazapine [Remeron 30mg TAB] 30 mg PO QHS 09/30/21 09/30/21 Unknown Allergies Allergy/AdvReac Type Severity Reaction Status Date / Time Iodinated Contrast Media Allergy Shortness Verified 09/30/21 09:53 [Iodinated Contrast Media - of Breath IV Dye] iodine Allergy Shortness Verified 09/30/21 09:53 of Breath Heart Score - HEART Score History: Slightly suspicious EKG: Normal Age: 45-65 Risk factors: No known risk factors Troponin: < normal limit HEART Score: 1 - EKG Read Time Time EKG Completed: 10:00 EKG Read Time: 11:00 - Critical Actions Critical Actions: 0-3 pts:0.9-1.7%risk of adverse cardiac event.Candidate for discharge ED Review of Systems ROS: Stated complaint: CHEST PAIN Other details as noted in HPI Comment: All other systems reviewed and negative Cardiovascular: chest pain ED Past Medical Hx - Past Medical History Hx Hypertension: Yes Hx Psychiatric Treatment: Yes (bipolar) Additional medical history: Vaginal delivery x 3, Interstitual cystitis - Surgical History Additional Surgical History: colon surgery - Social History Smoking Status: Never Smoker Substance Use Type: Prescribed, Tranquilizers - Medications Home Medications: Home Medications Medication Instructions Recorded Confirmed Last Taken Type Atorvastatin Calcium [Lipitor] 20 mg PO QHS 08/17/14 09/30/21 08/16/14 History [place] Carbonate 300 mg PO DAILY 08/17/14 09/30/21 08/16/14 History atenoloL [Tenormin] 25 mg PO DAILY 08/17/14 09/30/21 08/16/14 History hydrOXYzine PAMOATE [Vistaril] 50 mg PO TID PRN 08/17/14 09/30/21 08/17/14 History Lurasidone HCl [Latuda] 60 mg PO QDAY 09/30/21 09/30/21 Unknown History Mirtazapine [Remeron 30mg TAB] 30 mg PO QHS 09/30/21 09/30/21 Unknown History ED Physical Exam - General Limitations: No Limitations General appearance: alert, in no apparent distress - Head Head exam: Present: normal inspection - Eye Eye exam: Present: normal appearance Pupils: Present: normal accommodation - ENT ENT exam: Present: normal exam, normal orophraynx, mucous membranes moist - Neck Neck exam: Present: normal inspection, full ROM. Absent: tenderness - Respiratory Respiratory exam: Present: normal lung sounds bilaterally. Absent: respiratory distress, accessory muscle use - Cardiovascular Cardiovascular Exam: Present: normal rhythm, bradycardia, normal heart sounds - GI/Abdominal GI/Abdominal exam: Present: soft, normal bowel sounds. Absent: distended, tenderness - Extremities Exam Extremities exam: Present: normal inspection, normal capillary refill. Absent: pedal edema - Back Exam Back exam: Absent: tenderness - Neurological Exam Neurological exam: Present: alert, oriented X3 - Psychiatric Psychiatric exam: Present: normal affect, normal mood - Skin Skin exam: Present: warm ED Course Vital Signs 09/30/21 09/30/21 09:51 22:40 Temperature 98.2 F 98.8 F Pulse Rate 57 L 73 Respiratory 14 18 Rate Blood Pressure 139/82 121/50 [Left] O2 Sat by Pulse 99 99 Oximetry KENYON score - Kenyon Score Age > 65: (0) No Aspirin use within the Past 7 Days: (0) No 3 or more CAD Risk Factors: (0) No 2 or more Angina events in past 24 hrs: (0) No Known CAD with more than 50% Stenosis: (0) No Elevated Cardiac Markers: (0) No ST Deviation Greater than 0.5mm: (0) No KENYON Score: 0 ED Medical Decision Making - Lab Data Result diagrams: 09/30/21 10:59 - EKG Data -: EKG Interpreted by Me EKG shows normal: sinus rhythm Rate: bradycardia - EKG Data 10/01/21 01:52 Noted with normal sinus bradycardia with no ST elevation or depression in this normal ECG. - Medical Decision Making Here with chest pain/pressure--differential could be but not limited to myocardial infarction, pulmonary embolism, costochondritis, anxiety, gastritis, GERD, pancreatitis, and or pyelonephritis--in order to rule out the above-- so will go ahead and order routine cardiopulmonary work-up that include troponin, EKG, chest x-ray, BNP, CKMB, and CBC, CMP and urinalysis for any correctable infectious process or electrolyte abnormality as a cause. This is likely noncardiac considering unremarkable initial EKG and next 3 serial troponin--patient reassured and encouraged to continue to take weeks well for likely muscle spasm and pain Critical care attestation.: If time is entered above; I have spent that time in minutes in the direct care of this critically ill patient, excluding procedure time. ED Disposition Clinical Impression: Non-cardiac chest pain Disposition: 01 HOME / SELF CARE / HOMELESS Is pt being admited?: No Does the pt Need Aspirin: No Condition: Stable Instructions: Nonspecific Chest Pain, Adult, [id number] Additional Instructions: Continue to take your Vistaril as prescribed to help your symptoms Call and schedule follow-up with your primary doctor in the next 3 to 5 days for progress Increase your daily fluid to help your hydration Please do not hesitate to call or return to emergency room if your symptoms worsen Referrals: PRIMARY MD PACHECO [Primary Care Provider] - 3-5 Days Time of Disposition: 01:54
--- NOTE | 2021-10-01 09:53 | Electrocardiograph Report ---
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
== END 2021-10-01 02:29 | disposition home or self-care (01) ==
LOC: ED 09:47
DX: R07.9 Chest pain, unspecified (principal); I10 Essential (primary) hypertension; F31.9 Bipolar disorder, unspecified
CPT/HCPCS: 36415; 71046; 80053; 84484; 93005; 99284